=== PATIENT | female | born 1980 | race Caucasian/White ===

== ENCOUNTER → 2021-05-17 08:41 | Outpatient (CLI) | payer OTHER, SELFPAY ==
[2021-05-17 20:33] LABS: Add Manual Diff / Slide Review NO; Alanine Aminotransferase 15 IU/L (<35); Albumin Globulin Ratio 1.4 (1.0-2.8); Alkaline Phosphatase 50 U/L (38-126); Aspartate Aminotransferase 24 IU/L (14-36); Basophils Absolute Auto 0 /uL (0-100); Basophils Percent Auto 0.4 % (0-2); Bilirubin Total 0.5 mg/dL (0.2-1.3); Blood Urea Nitrogen 15 mg/dL (7-17); Calcium 9.2 mg/dL (8.4-10.2); Carbon Dioxide 28 mmol/L (22-32); Chloride 105 mmol/L (98-107); Cholesterol 199 mg/dL (140-199); Eosinophils Absolute Auto 100 /uL (0-450); Eosinophils Percent Auto 2.3 % (2-4); Estimated Glomerular Filt Rate > 60.0 mL/min (>60); Globulin 2.8 g/dL (1.7-4.1); Glucose 90 mg/dL (70-100); HDL Cholesterol 90 mg/dL (40-60); HEMOLYSIS < 15 (0-50); Hemoglobin 12.9 g/dL (12.0-16.0); LDL Cholesterol Calculated 93 mg/dL (<100); Lymphocytes Absolute Auto 1500 /uL (1100-4500); Lymphocytes Percent Auto 28.2 % (25-40); Mean Corpuscular HGB Conc 33.1 % (30-36); Mean Corpuscular Hemoglobin 29.7 PG (26-34); Mean Corpuscular Volume 89.5 fL (80-100); Monocytes Absolute Auto 500 /uL (0-900); Neutrophils Absolute Auto 3100 /uL (1500-7000); Neutrophils Percent Auto 60.1 % (50-75); Platelet Count 256 X10^3/uL (150-400); Potassium 4.2 mmol/L (3.4-5.1); Red Blood Cell Count 4.35 X10^6/uL (4.0-5.2); Red Cell Distribution Width 13.4 % (11.6-14.8); Sodium 138 mmol/L (137-145); Total Protein 6.8 g/dL (6.3-8.2); Triglycerides 78 mg/dL (35-150); White Blood Cell Count 5.2 X10^3/uL (4.5-11.0)
[2021-05-17 21:35] LABS: Folate 17.8 ng/mL (2.76-20.0); Vitamin B12 484 pg/mL (239-931)
== END ==
PROVIDERS: PCP Family Medicine; Visit Provider Family Medicine
DX: E03.9 Hypothyroidism, unspecified (principal); Z79.890 Hormone replacement therapy
CPT/HCPCS: 80053; 80061; 82607; 82746; 84443; 85025

== ENCOUNTER → 2022-06-06 08:49 | Outpatient (CLI) | payer OTHER, SELFPAY ==
[2022-06-06 19:56] LABS: Add Manual Diff / Slide Review NO; Basophils Absolute Auto 0 /uL (0-100); Basophils Percent Auto 0.6 % (0-2); Eosinophils Absolute Auto 100 /uL (0-450); Eosinophils Percent Auto 2.3 % (2-4); Hematocrit 37.9 % (36-46); Hemoglobin 12.6 g/dL (12.0-16.0); Lymphocytes Absolute Auto 1200 /uL (1100-4500); Lymphocytes Percent Auto 25.7 % (25-40); Mean Corpuscular HGB Conc 33.4 % (30-36); Mean Corpuscular Hemoglobin 29.4 PG (26-34); Mean Corpuscular Volume 88.1 fL (80-100); Monocytes Absolute Auto 400 /uL (0-900); Monocytes Percent Auto 8.6 % (3-14); Neutrophils Absolute Auto 2900 /uL (1500-7000); Neutrophils Percent Auto 62.8 % (50-75); Platelet Count 249 X10^3/uL (150-400); Red Cell Distribution Width 13.6 % (11.6-14.8); White Blood Cell Count 4.6 X10^3/uL (4.5-11.0)
[2022-06-06 20:05] LABS: Alanine Aminotransferase 13 IU/L (<35); Albumin 4.4 g/dL (3.5-5.0); Albumin Globulin Ratio 1.8 (1.0-2.8); Alkaline Phosphatase 50 U/L (38-126); Aspartate Aminotransferase 24 IU/L (14-36); BUN Creatinine Ratio 16.5 (6-22); Bilirubin Total 0.5 mg/dL (0.2-1.3); Blood Urea Nitrogen 14 mg/dL (7-17); Calcium 9.1 mg/dL (8.4-10.2); Carbon Dioxide 31 mmol/L (22-32); Chloride 102 mmol/L (98-107); Cholesterol 203 mg/dL (140-199); Estimated Glomerular Filt Rate > 60 mL/min (>60); Globulin 2.5 g/dL (1.7-4.1); Glucose 87 mg/dL (70-100); HDL Cholesterol 79 mg/dL (40-60); HEMOLYSIS < 15 (0-50); LDL Cholesterol Calculated 108 mg/dL (<100); Potassium 4.5 mmol/L (3.4-5.1); Sodium 138 mmol/L (137-145); Total Protein 6.9 g/dL (6.3-8.2); Triglycerides 81 mg/dL (35-150)
[2022-06-06 20:54] LABS: Vitamin B12 341 pg/mL (239-931)
== END ==
PROVIDERS: PCP Physician Assistant; Visit Provider Physician Assistant
DX: E03.9 Hypothyroidism, unspecified (principal); E53.8 Deficiency of other specified B group vitamins; Z13.220 Encounter for screening for lipoid disorders
CPT/HCPCS: 80053; 80061; 82607; 84443; 85025

== ENCOUNTER → 2022-06-13 09:08 | Outpatient (CLI) | payer OTHER, SELFPAY ==
[2022-06-13 21:44] LABS: COVID19 - ORCAS (NP or Nasal) Negative (Negative)
== END ==
PROVIDERS: PCP Physician Assistant; Visit Provider Physician Assistant
DX: Z01.812 Encounter for preprocedural laboratory examination (principal); Z20.822 Contact with and (suspected) exposure to COVID-19
CPT/HCPCS: U0003

== ENCOUNTER 2022-06-15 09:03 | Day surgery (SDC) | payer OTHER, SELFPAY ==
[2022-06-15] VITALS (8 sets, daily range): BP systolic 103–118; BP diastolic 65–73; PULSE 59–83; RESP 11–16; TEMP 36–37; O2SAT 97–100; BMI 25.8
--- NOTE | 2022-06-15 | PATH_ITS ---
[facility] Accession Number: [id number] . 01 Material submitted: . endometrium - ENDOMETRIAL CURETTINGS . 01 Diagnosis: Endometrium, Curettage: Endometrioid intraepithelial neoplasia (EIN; complex atypical hyperplasia). MRV 06/19/2022 1305 Local . 01 Comment: Changes diagnostic of adenocarcinoma are not seen in this specimen. Background secretory phase endometrium is present. . 01 Electronically signed: . Joslyn Hu MD, Pathologist NPI- [id number] . 01 Gross description: . ENDOMETRIAL CURETTINGS: Received in formalin are minute fragments of mucoid and hemorrhagic material measuring 2.5 x 1.7 x 0.2 cm in aggregate. Submitted in toto in 1 cassette. /CPE 06/16/2022 0447 Local . 01 Pathologist provided ICD-10: N85.00 . 01 CPT . 762025 Specimen Comment: A courtesy copy of this report has been sent to [phone] Performed at: 01 [facility] Cytology [address] [place] [address], [place], [place] [id number] MD Saul Pelletier MD Phone: [phone]
[2022-06-15] MEDS: LACTATED RINGERS 1,000 ML 42 ML IV (10:11)
--- NOTE | 2022-06-15 10:52 | PM.HP.1 ---
History of Present Illness History of Present Illness Date Patient Seen: 06/15/22 Time Patient Seen: 10:52 Chief complaint: RIC Narrative: Patient is a 41-year-old 2 para 2 who presents for a D&C hysteroscopy due to complex endometrial hyperplasia on an endometrial biopsy in the office. Patient History Medical History Brain fog (~2013) C. difficile colitis (~2016) Chicken pox Headache Hypothyroidism (~2015) Infertility Migraines MRSA (methicillin resistant Staphylococcus aureus) (~2018) Ovarian cyst Surgical History Anesthesia History of appendectomy (~05/24/10) History of oral surgery (~2005) History of ovarian resection Family & Social History Family History (Updated 05/19/21 @ 21:24 by Tonie Mireles) Father Hypertension Mother Breast cancer Brother Hypertension Brother Hypertension Sister Cancer Grandmother Stomach cancer Social History: household members spouse Tobacco & Substance use: Smoking Status Former smoker alcohol intake current alcohol intake frequency 0-2 drinks per day Substance Use Type does not use Meds Home Medications and Allergies Home Medications Medication Instructions Recorded Confirmed Type levothyroxine 75 mcg tablet 37.5 mcg PO DAILY #90 tabs 01/31/22 06/15/22 Rx progesterone micronized 100 mg 100 mg PO QAM #30 caps 06/07/22 06/15/22 Rx capsule (Prometrium) estradiol 0.1 mg/24 hr semiweekly See Rx Instructions .Route 06/09/22 06/15/22 Rx transdermal patch (Jeanne) .COMPLEX #24 patches melatonin 3 mg DAILY 06/15/22 06/15/22 History Allergies Allergy/AdvReac Type Severity Reaction Status Date / Time metronidazole [From Flagyl] AdvReac Intermediate Numbness Verified 06/15/22 09:31 in face and hands. Exam Vital Signs (past 8 hours): - 06/15/22 09:34 Temperature 98.6 F Pulse Rate 83 Respiratory Rate 16 Blood Pressure 118/67 Pulse Oximetry 97 Oxygen Delivery Method Room Air Oxygen Delivery Method Room Air Narrative Exam Narrative: HEENT: No thyromegaly, no anterior cervical or supraclavicular lymphadenopathy. Lungs:Clear to auscultation bilaterally, no wheezes. Cardiovascular: Regular rate and rhythm, no murmurs, rubs, or gallops. Abdomen: Well-healed scars. No hepatosplenomegaly. No masses palpable. External genitalia: Normal Vagina: Normal Cervix: Normal Bimanual exam: 8 Week size anteverted uterus. Mobile. No adnexal masses or tenderness Assessment & Plan Assessment & Plan narrative: Assessment: 41-year-old 2 para 2 with complex endometrial hyperplasia by biopsy in the office Plan: D&C hysteroscopy with possible polypectomy The risks, benefits, and alternatives to the procedure were explained to the patient. The risks including bleeding, infection, and uterine perforation. She understands these risks and agrees to proceed. A full par Q was held and consent form was signed. COVID-19 COVID-19 status: Negative Result date/Date tested (Pos, Neg/Pending): 06/13/22 Time Spent With Patient Time with patient: less than 30 minutes Critical Care time: I spent a total of [] minutes of critical care time on this patient's care today; this time is exclusive of procedural time.
--- NOTE | 2022-06-15 10:55 | PM.PREOP ---
Pre-operative Note COVID-19 COVID-19 status: Negative Result date/Date tested (Pos, Neg/Pending): 06/13/22 Criteria for continued procedure: Non-surgical alternatives not available or appropriate per current SOC Interval Note History & Physical reviewed/Exam performed by Physician: Yes Changes to H&P: No H&P completed within 30 days and has changed as indicated here:: 06/15/22
--- NOTE | 2022-06-15 11:37 | SUR.OPER ---
Lithotomy on padded OR bed, head on pillow, arms secured on padded arm boards at <90 degrees abduction. Legs secured in padded yellow fins stirrups.
--- NOTE | 2022-06-15 11:52 | PM.GYNOP.1 ---
Operative Date/Time/Diagnoses Date of procedure: 06/15/22 Time of procedure: 11:52 Pre-op diagnosis: Complex endometrial hyperplasia on EMB in office Post-op diagnosis: same Procedure & Clinicians Procedure: Procedures Operation Date: 06/15/22 10:15 Actual Procedure Side Surgeon p Hysteroscopy D&C Yamilex Greenwood MD Indications: Complex endometrial hyperplasia on office EMB Surgeon: Yamilex Greenwood Anesthesia Type: General (LMA) Operative Notes Findings: 8 wk size anteverted uterus Very thickened endometrial lining Neither fallopian tube ostia observed due to thickness on endometrium Closure Type: not applicable Specimen(s): endometrial curettings Estimated blood loss (mL): 5 Blood products transfused: none Procedure in detail: After informed consent was obtained, the patient was taken to the operating room where she was placed in the dorsal supine position. After adequate LMA general anesthesia was achieved, she was placed in the dorsal lithotomy position, and prepped and draped in the usual sterile fashion. A time-out was performed. A bivalve speculum was placed into the vagina and the anterior lip of the cervix was grasped with a single-tooth tenaculum. Cervical os was sequentially dilated to the # 8 Hegar dilator. The hysteroscope passed easily into the endometrial cavity. Neither fallopian tube ostia were observed. There was thick endometrial lining circumferentially. The hysteroscope was removed. Sharp curettage was performed yielding a large amount of endometrial curettings. A plastic suction curette was passed into the endometrial cavity. Several passes with suction revealed a large amount of tissue. The instruments were removed from the uterus. The single-tooth tenaculum was removed from the anterior lip of the cervix. The bivalve speculum was removed from the vagina. Sponge, lap, and instrument counts were correct x2. The patient tolerated the procedure well, and was taken to PACU in stable condition. Complications: none Post-operative Condition: stable Disposition: PACU Plan for aftercare: Home after recovery
[2022-06-15] MEDS: OXYCODONE IR 5 MG TABLET PO (12:11)
== END 2022-06-15 13:12 | disposition home or self-care (01) ==
PROVIDERS: Referring Provider Obstetrics & Gynecology; Visit Provider Obstetrics & Gynecology
PROC: 0UDB8ZZ Extraction of Endometrium, Via Natural or Artificial Opening Endoscopic (ICD-10-PCS; CPT 58558; principal; 2022-06-15 10:15)
DX: N85.01 Benign endometrial hyperplasia (principal); N93.9 Abnormal uterine and vaginal bleeding, unspecified; E03.9 Hypothyroidism, unspecified
CPT/HCPCS: 58558; J1100; J1885; J2250; J2405; J2704; J3010

== ENCOUNTER → 2023-06-05 11:27 | Outpatient (CLI) | payer OTHER, SELFPAY ==
--- NOTE | 2023-06-05 11:28 | DI.MG.S_ITS ---
BILATERAL DIGITAL SCREENING MAMMOGRAM 3D/2D WITH CAD: 06/05/2023 CLINICAL: Routine screening. Family History breast cancer. Comparison is made to exam dated: 08/08/2021 mammogram - outside location. Both breasts are heterogeneously dense, which may obscure small masses (category c / 51-75% glandular tissue). Current study was also evaluated with a Computer Aided Detection (CAD) system. No significant masses, calcifications, or other findings are seen in either breast. There has been no significant interval change. IMPRESSION: NEGATIVE There is no mammographic evidence of malignancy. A 1 year screening mammogram is recommended. Based on the Tyrer Cuzick model (a risk assessment model) the patient's lifetime risk is 12.8% and her 10 year risk is 2.2%. According to the ACR, ACS, and NCCN guidelines, an annual breast MRI exam along with mammogram is recommended if the patient's lifetime risk is 20% or greater. This exam was interpreted at Station ID: [id number]. NOTE: For mammograms, a report in lay terms will be sent to the patient. Approximately 15% of breast malignancies will not be visualized mammographically. In the management of a palpable breast mass, a negative mammogram must not discourage biopsy of a clinically suspicious lesion. Electronically Signed By: Valerie medellin/duyen:06/05/2023 16:35:17 letter sent: Normal Exam ACR BI-RADS Category 1: Negative [id number]
== END ==
PROVIDERS: PCP Physician Assistant; Referring Provider Physician Assistant; Visit Provider Physician Assistant
DX: Z12.31 Encounter for screening mammogram for malignant neoplasm of breast (principal); Z80.3 Family history of malignant neoplasm of breast
CPT/HCPCS: 77063; 77067

== ENCOUNTER 2023-08-18 18:28 | Emergency (ER) | payer OTHER, SELFPAY ==
[2023-08-18] VITALS (9 sets, daily range): BP systolic 105–157; BP diastolic 58–72; PULSE 66–91; RESP 16–18; TEMP 36.8; O2SAT 98–100; BMI 25.9
--- NOTE | 2023-08-18 19:43 | ED.HA ---
HPI - Headache General Chief Complaint: Headache Stated Complaint: migraine, pupils were different Time Seen by Provider: 08/18/23 19:09 Mode of arrival: Ambulatory History of Present Illness HPI Narrative: Patient 42-year-old female history of hysterectomy hypothyroid presenting today with migraine headache and abnormal left pupil. She reports that she is had a migraine headache which is a little abnormal she had some pressure behind her left eye today she reported an abnormal pupil shape which has now returned to. She was having a headache at the time. No numbness tingling or weakness. However she is reporting some neck pain. She denies any chiropractic manipulation. It does kind of hurt and with movement. She is not wanting anything for pain Related Data Home Medications Medication Instructions Recorded Confirmed melatonin 3 mg DAILY 06/15/22 08/17/23 Previous Rx's Medication Instructions Recorded naproxen 500 mg tablet 500 mg PO BID PRN pain #30 tabs 01/25/23 estradiol 0.1 mg/24 hr semiweekly See Rx Instructions .Route 05/21/23 transdermal patch (Jeanne) .COMPLEX #24 patches levothyroxine 75 mcg tablet 37.5 mcg PO DAILY #14 tabs 08/09/23 Allergies Allergy/AdvReac Type Severity Reaction Status Date / Time metronidazole [From Flagyl] AdvReac Intermediate Numbness Verified 08/17/23 10:29 in face and hands. Review of Systems Review of Systems ROS Unobtainable: All systems reviewed & are unremarkable except as noted in HPI and below Patient History Medical History (Updated 08/18/23 @ 21:04 by Giovanna Delacruz DO) Brain fog (~2013) C. difficile colitis (~2016) Chicken pox Headache Hypothyroidism (~2015) Infertility Migraines MRSA (methicillin resistant Staphylococcus aureus) (~2018) Ovarian cyst Surgical History Anesthesia History of appendectomy (~05/24/10) History of oral surgery (~2005) History of ovarian resection Family History (Updated 05/19/21 @ 21:24 by Tonie Mireles) Father Hypertension Mother Breast cancer Brother Hypertension Brother Hypertension Sister Cancer Grandmother Stomach cancer Social History household members: spouse Smoking Status: Former smoker alcohol intake: current Smoking Status: Former smoker alcohol intake frequency: 0-2 drinks per day Substance Use Type: does not use Exam Initial Vital Signs Initial Vital Signs: Vital Signs Pulse Oximetry 98 08/18/23 18:31 GENERAL: Well-appearing, well-nourished and in no acute distress. HEENT: Head atraumatic,EOMI, pupils reactive, face symmetric, moist mucous membranes NECK: No vertebral tenderness no step-offs, pain reproducible when she turns her head towards the left. CARDIOVASCULAR: Regular rate and rhythm without murmurs, rubs or gallops. RESPIRATORY: Breath sounds equal bilaterally, no wheezes rales or rhonchi. ABDOMEN: Soft, nontender. Normoactive bowel sounds all 4 quadrants. No guarding or rebound. EXTREMITIES: Normal range of motion, no clubbing or edema. Neurovascularly intact NEUROLOGICAL: Alert and oriented x4.Normal gait and speech. Cranial nerves II through XII grossly intact. Good [id number], good uhtd-rq-zaup, strength equal bilaterally, no dysarthria or aphasia, sensation in tact to soft touch bilaterally, no visual changes, no facial droop SKIN: Warm, dry, no laceration, no petechiae, no rashes or lesions. Scores NIH Stroke Scale Level of Conciousness: Alert, keenly responsive Ask month/age: Answers both questions correctly. Open/close eyes, close hand: Performs both tasks correctly Best gaze horizontal: Normal Visual fuentes: No visual loss Facial palsy: Normal symetrical movement Left arm drift: No drift for full 10 sec Right arm drift: No drift for full 10 sec Left leg drift: No drift for full 5 sec Right leg drift: No drift for full 5 sec Limb ataxia: Absent Sensory on face/arms/legs: Normal, no sensory loss Best language: No aphasia, normal Dysarthria: Normal Extinction or inattention: No abnormality Total NIH Stroke scale score: 0 Course Orders Ordered: ED Orders 08/18/23 20:00 CT angio head and neck Stat 08/18/23 20:05 CBC Auto Diff [Complete Blood Count AUTO DIFF] Stat CMP [Comprehensive Metabolic Panel] Stat Vital Signs Vital signs: Vital Signs - 8 hr 08/18/23 18:34 08/18/23 18:31 08/18/23 18:32 Temperature 98.2 F Pulse Rate 81 Respiratory Rate 18 Blood Pressure 157/72 H 157/72 H Pulse Oximetry 99 98 Oxygen Delivery Method Room Air 08/18/23 18:32 08/18/23 19:00 08/18/23 19:00 Temperature Pulse Rate 91 H 74 Respiratory Rate 18 Blood Pressure 111/59 L Pulse Oximetry 99 99 Oxygen Delivery Method 08/18/23 19:30 08/18/23 19:30 08/18/23 20:00 Temperature Pulse Rate 67 Respiratory Rate 16 Blood Pressure 105/59 L 123/58 L Pulse Oximetry 99 Oxygen Delivery Method 08/18/23 20:00 08/18/23 20:30 08/18/23 20:31 Temperature Pulse Rate 66 70 71 Respiratory Rate 18 16 Blood Pressure Pulse Oximetry 98 100 100 Oxygen Delivery Method 08/18/23 20:31 08/18/23 21:08 Temperature Pulse Rate 74 Respiratory Rate 16 Blood Pressure 121/58 L 113/64 Pulse Oximetry 98 Oxygen Delivery Method Room Air MDM - Headache Lab Data 08/18/23 20:05 08/18/23 20:05 Labs: Lab Results 08/18/23 08/18/23 Range/Units 20:05 20:05 WBC 7.0 (4.5-11.0) X10^3/uL RBC 4.46 (4.0-5.2) X10^6/uL Hgb 13.2 (12.0-16.0) g/dL Hct 38.7 (36-46) % MCV 86.7 (80-100) fL MCH 29.7 (26-34) PG MCHC 34.2 (30-36) % RDW 13.3 (11.6-14.8) % Plt Count 266 (150-400) X10^3/uL Neut % (Auto) 66.2 (50-75) % Lymph % (Auto) 23.0 L (25-40) % [place] % (Auto) 9.2 (3-14) % Eos % (Auto) 1.0 L (2-4) % Baso % (Auto) 0.6 (0-2) % Neut # (Auto) 4600 (2667-5192) /uL Lymph # (Auto) 1600 (1132-5648) /uL [place] # (Auto) 600 (0-900) /uL Eos # (Auto) 100 (0-450) /uL Baso # (Auto) 0 (0-100) /uL Sodium 138 (137-145) mmol/L Potassium 3.7 (3.4-5.1) mmol/L Chloride 101 (98-107) mmol/L Carbon Dioxide 30 (22-32) mmol/L BUN 16 (7-17) mg/dL Creatinine 0.84 (0.52-1.04) mg/dL Estimated GFR > 60 (>60) mL/min BUN/Creatinine Ratio 19.0 (6-22) Glucose 86 (70-100) mg/dL Calcium 9.8 (8.4-10.2) mg/dL Total Bilirubin 0.3 (0.2-1.3) mg/dL AST 23 (14-36) IU/L ALT 18 (<35) IU/L Alkaline Phosphatase 64 (38-126) U/L Total Protein 7.7 (6.3-8.2) g/dL Albumin 4.5 (3.5-5.0) g/dL Globulin 3.2 (1.7-4.1) g/dL Albumin/Globulin Ratio 1.4 (1.0-2.8) Imaging Data CTA - brain/neck: Radiologist's Impression: PROCEDURE:? CT ANGIO HEAD AND NECK ? INDICATIONS:? Left pupil abnormal with neck pain and headache. ? TECHNIQUE:? After the administration of intravenous contrast, 1 mm thick sections acquired from the aortic arch through the [place] of [place].? 3-dimensional sikihcu-vcymxafmh-nujqpsqfuk (MIP) and/or volume rendering reformats were acquired of the central intracranial vasculature and neck separately. For radiation dose reduction, the following was used:? automated exposure control, adjustment of mA and/or kV according to patient size.? ? COMPARISON:? None. ? FINDINGS:? Image quality:? Diagnostic.? ? BRAIN:? CSF spaces:? Ventricles are normal in size and shape.? Basal cisterns are patent.? No extra-axial fluid collections.? ? Brain:? No significant abnormality of the brain can be seen. ? ? ? Skull and face:? Calvarium and facial bones appear intact, without suspicious lesions.? Orbits appear normal.? ? Sinuses:? Sinuses and mastoids are clear.? ? HEAD CT ANGIOGRAPHY:? Anterior circulation:? Intracranial internal carotid arteries are normal in size and flow.? The flow within the paired anterior cerebral arteries is normal and symmetric.? The flow within the middle cerebral arteries is normal and symmetric.? The anterior communicating artery is seen.? No aneurysms are seen.? ? Posterior circulation:? Visualized portions of the vertebral arteries demonstrate normal caliber, and join to form a normal appearing basilar artery.? Flow within the posterior cerebral arteries is normal and symmetric.? No aneurysms are seen.? ? NECK CT ANGIOGRAPHY:? Carotid system:? The great vessels demonstrate a conventional anatomy as they arise from the aortic arch.? The origins of the common carotid arteries appear patent.? The common carotid arteries demonstrate normal caliber and courses.? The bifurcation regions are both widely patent.? The internal carotid arteries demonstrate normal calibers and courses.? ? Posterior circulation:? The origins of the vertebral arteries both appear widely patent.? The more superior extracranial portions of both vertebral arteries also demonstrate normal courses and calibers.? They join to form a normal appearing basilar artery.? ? Soft tissues:? Visualized neck soft tissues demonstrate no suspicious abnormalities.? ? Bones:? No suspicious bony lesions.? Visualized cervical spine appears normally aligned.? IMPRESSION:? Normal for age, source of current symptoms is not seen. ? Any quantitative measurements of stenosis were performed using NASCET criteria.? ? ? Dictated by: Yoni Sin M.D. on 08/18/2023 at 20:37 ? ? MDM Narrative Medical decision making narrative: Patient 42-year-old female history of migraines presenting today with a left abnormal pupil which is now normal. It does seem to react no evidence of be shaped pupil no trauma to the eye. She is having neck pain as well without any obvious injury or manipulation. Possible dissection without numbness or tingling seems likely but CT angio was done and is negative. Blood work is so negative Multiple etiologies for patient's symptoms considered including, but not limited to: Vertebral artery dissection, brain mass, atypical migraine Prior Charts reviewed: Labs reviewed and interpreted by myself: No abnormality Imaging reviewed: CT angio Consultations: None Patient's symptoms improved over duration of stay with above-stated therapies. Findings and discharge diagnosis discussed with patient/family followed by verbalization of understanding Return precautions discussed with patient/family whom verbalize understanding of diagnosis and plan Discharge Plan Departure Patient Disposition: Home Clinical Impression: Headache Instructions: DI for Headache Activity Restrictions/Additional Instructions: *You have been diagnosed with headache *What to do: At this time there is no abnormality in head or neck. Rest and hydrate *Continue to take medications as directed *Follow up with your primary care provider in 2-3 days or call [phone] *Return to ER if you should have in worsening headache neck pain fever numbness tingling weakness or any new, worsening or concerning symptoms Prescriptions: No Action estradiol [Jeanne] 0.1 mg/24 hr patch semiweekly See Rx Instructions .ROUTE .COMPLEX Qty: 24 3RF Dose Instruction: APPLY 1 PATCH TO THE SKIN TWICE A WEEK -- ALTERNATE WITH 1 PATCH FOR 3 DAYS AND 1 PATCH FOR 4 DAYS EACH WEEK Rx Instructions: APPLY 1 PATCH TO THE SKIN TWICE A WEEK -- ALTERNATE WITH 1 PATCH FOR 3 DAYS AND 1 PATCH FOR 4 DAYS EACH WEEK levothyroxine 75 mcg tablet 37.5 mcg PO DAILY Qty: 14 0RF melatonin 3 mg DAILY naproxen 500 mg tablet 500 mg PO BID PRN (Reason: pain) Qty: 30 0RF Rx Instructions: Take with food Referrals: Rosemarie Anthony PA-C [Primary Care Provider] - Stand Alone Forms: Patient Portal/API
--- NOTE | 2023-08-18 20:00 | DI.CT.S_ITS ---
PROCEDURE: CT ANGIO HEAD AND NECK INDICATIONS: Left pupil abnormal with neck pain and headache. TECHNIQUE: After the administration of intravenous contrast, 1 mm thick sections acquired from the aortic arch through the [place] of [place]. 3-dimensional ftbncwk-mfrmhssmf-srxzmyqjvj (MIP) and/or volume rendering reformats were acquired of the central intracranial vasculature and neck separately. For radiation dose reduction, the following was used: automated exposure control, adjustment of mA and/or kV according to patient size. COMPARISON: None. FINDINGS: Image quality: Diagnostic. BRAIN: CSF spaces: Ventricles are normal in size and shape. Basal cisterns are patent. No extra-axial fluid collections. Brain: No significant abnormality of the brain can be seen. Skull and face: Calvarium and facial bones appear intact, without suspicious lesions. Orbits appear normal. Sinuses: Sinuses and mastoids are clear. HEAD CT ANGIOGRAPHY: Anterior circulation: Intracranial internal carotid arteries are normal in size and flow. The flow within the paired anterior cerebral arteries is normal and symmetric. The flow within the middle cerebral arteries is normal and symmetric. The anterior communicating artery is seen. No aneurysms are seen. Posterior circulation: Visualized portions of the vertebral arteries demonstrate normal caliber, and join to form a normal appearing basilar artery. Flow within the posterior cerebral arteries is normal and symmetric. No aneurysms are seen. NECK CT ANGIOGRAPHY: Carotid system: The great vessels demonstrate a conventional anatomy as they arise from the aortic arch. The origins of the common carotid arteries appear patent. The common carotid arteries demonstrate normal caliber and courses. The bifurcation regions are both widely patent. The internal carotid arteries demonstrate normal calibers and courses. Posterior circulation: The origins of the vertebral arteries both appear widely patent. The more superior extracranial portions of both vertebral arteries also demonstrate normal courses and calibers. They join to form a normal appearing basilar artery. Soft tissues: Visualized neck soft tissues demonstrate no suspicious abnormalities. Bones: No suspicious bony lesions. Visualized cervical spine appears normally aligned. IMPRESSION: Normal for age, source of current symptoms is not seen. Any quantitative measurements of stenosis were performed using NASCET criteria. Dictated by: Yoni Sin M.D. on 08/18/2023 at 20:37 Approved by: Yoni Sin M.D. on 08/18/2023 at 20:39
[2023-08-18 20:18] LABS: Add Manual Diff / Slide Review NO; Basophils Absolute Auto 0 /uL (0-100); Basophils Percent Auto 0.6 % (0-2); Eosinophils Absolute Auto 100 /uL (0-450); Hematocrit 38.7 % (36-46); Hemoglobin 13.2 g/dL (12.0-16.0); Lymphocytes Absolute Auto 1600 /uL (1100-4500); Mean Corpuscular HGB Conc 34.2 % (30-36); Mean Corpuscular Hemoglobin 29.7 PG (26-34); Mean Corpuscular Volume 86.7 fL (80-100); Monocytes Absolute Auto 600 /uL (0-900); Monocytes Percent Auto 9.2 % (3-14); Neutrophils Absolute Auto 4600 /uL (1500-7000); Neutrophils Percent Auto 66.2 % (50-75); Platelet Count 266 X10^3/uL (150-400); Red Blood Cell Count 4.46 X10^6/uL (4.0-5.2); Red Cell Distribution Width 13.3 % (11.6-14.8)
[2023-08-18 20:28] LABS: Alanine Aminotransferase 18 IU/L (<35); Albumin 4.5 g/dL (3.5-5.0); Albumin Globulin Ratio 1.4 (1.0-2.8); Alkaline Phosphatase 64 U/L (38-126); Aspartate Aminotransferase 23 IU/L (14-36); Bilirubin Total 0.3 mg/dL (0.2-1.3); Blood Urea Nitrogen 16 mg/dL (7-17); Calcium 9.8 mg/dL (8.4-10.2); Carbon Dioxide 30 mmol/L (22-32); Chloride 101 mmol/L (98-107); Estimated Glomerular Filt Rate > 60 mL/min (>60); Globulin 3.2 g/dL (1.7-4.1); Glucose 86 mg/dL (70-100); HEMOLYSIS < 15 (0-50); Potassium 3.7 mmol/L (3.4-5.1); Sodium 138 mmol/L (137-145); Total Protein 7.7 g/dL (6.3-8.2)
== END 2023-08-18 21:22 | disposition home or self-care (01) ==
PROVIDERS: Emergency Provider Emergency Medicine; PCP Physician Assistant Medical
DX: R51.9 Headache, unspecified (principal); M54.2 Cervicalgia
CPT/HCPCS: 36415; 70496; 70498; 80053; 85025; 99283; 99284; Q9967

== ENCOUNTER → 2023-08-30 11:26 | Outpatient (CLI) | payer OTHER, SELFPAY ==
[2023-08-30 19:59] LABS: Alanine Aminotransferase 18 IU/L (<35); Albumin 4.5 g/dL (3.5-5.0); Albumin Globulin Ratio 1.5 (1.0-2.8); Alkaline Phosphatase 58 U/L (38-126); Aspartate Aminotransferase 24 IU/L (14-36); BUN Creatinine Ratio 21.3 (6-22); Bilirubin Total 0.3 mg/dL (0.2-1.3); Blood Urea Nitrogen 16 mg/dL (7-17); Calcium 9.9 mg/dL (8.4-10.2); Carbon Dioxide 30 mmol/L (22-32); Chloride 101 mmol/L (98-107); Cholesterol 209 mg/dL (140-199); Estimated Glomerular Filt Rate > 60 mL/min (>60); Glucose 86 mg/dL (70-100); HDL Cholesterol 75 mg/dL (40-60); HEMOLYSIS < 15 (0-50); LDL Cholesterol Calculated 117 mg/dL (<100); Potassium 4.3 mmol/L (3.4-5.1); Sodium 138 mmol/L (137-145); Total Protein 7.5 g/dL (6.3-8.2); Triglycerides 83 mg/dL (35-150)
[2023-08-30 20:08] LABS: Add Manual Diff / Slide Review NO; Basophils Absolute Auto 0 /uL (0-100); Basophils Percent Auto 0.9 % (0-2); Eosinophils Absolute Auto 100 /uL (0-450); Eosinophils Percent Auto 1.8 % (2-4); Hematocrit 37.1 % (36-46); Hemoglobin 13.3 g/dL (12.0-16.0); Lymphocytes Absolute Auto 1600 /uL (1100-4500); Lymphocytes Percent Auto 31.3 % (25-40); Mean Corpuscular HGB Conc 35.9 % (30-36); Mean Corpuscular Hemoglobin 31.2 PG (26-34); Mean Corpuscular Volume 86.8 fL (80-100); Monocytes Absolute Auto 400 /uL (0-900); Monocytes Percent Auto 8.3 % (3-14); Neutrophils Absolute Auto 3000 /uL (1500-7000); Neutrophils Percent Auto 57.7 % (50-75); Platelet Count 315 X10^3/uL (150-400); Red Blood Cell Count 4.27 X10^6/uL (4.0-5.2); Red Cell Distribution Width 12.8 % (11.6-14.8); White Blood Cell Count 5.1 X10^3/uL (4.5-11.0)
[2023-08-30 20:48] LABS: Vitamin B12 868 pg/mL (239-931)
[2023-09-02 07:31] LABS: TSH w/ Reflex to FT4 2.37 uIU/mL (0.47-4.68)
== END ==
PROVIDERS: PCP Physician Assistant Medical; Visit Provider Physician Assistant Medical
DX: E03.9 Hypothyroidism, unspecified (principal); E53.8 Deficiency of other specified B group vitamins
CPT/HCPCS: 80053; 80061; 82607; 84443; 85025

== ENCOUNTER → 2024-01-01 08:42 | Outpatient (CLI) | payer OTHER, SELFPAY | PROVIDERS: PCP Physician Assistant Medical; Visit Provider Physician Assistant Medical | DX: M54.9 Dorsalgia, unspecified (principal); R10.9 Unspecified abdominal pain; M54.50 Low back pain, unspecified | CPT/HCPCS: 87086 ==

== ENCOUNTER → 2024-01-28 10:41 | Outpatient (CLI) | payer OTHER, SELFPAY ==
--- NOTE | 2024-01-28 10:42 | DI.US.S_ITS ---
PROCEDURE: US ABDOMEN COMPLETE INDICATIONS: Right-sided abdominal pain. TECHNIQUE: Real-time scanning was performed of the abdominal and retroperitoneal organs, with image documentation. Please note study was completed on January 28, 2024. No interpretation was provided at the time of image completion. Study was presented for interpretation on February 07, 2024. COMPARISON: None. FINDINGS: Liver: Liver is normal in size and homogeneous in echotexture. Liver is mildly echogenic. Gallbladder: Gallbladder is sonographically normal. No gallstones. No gallbladder wall thickening. No pericholecystic fluid. No sonographic Crook sign. Biliary ducts: Intrahepatic bile ducts are non-dilated. Extrahepatic bile duct caliber measures 4.0 mm. Normal is 6-7 mm or less in diameter, or 10 mm or less post-cholecystectomy. Pancreas: Visualized portions of the pancreas are sonographically normal. Pancreatic tail not visualized due to bowel gas. Spleen: Spleen is normal in size and homogeneous in echotexture. Kidneys: Kidneys are normal in size and echotexture. Right kidney measures 11.1 cm long; left kidney measures 11.1 cm long. No hydronephrosis or nephrolithiasis. No solid masses. Aorta: Visualized aorta is normal in caliber at less than 3 cm. Iliacs: Proximal common iliac arteries are normal in caliber at less than 2.5 cm. IVC: Intrahepatic inferior vena cava is patent. Miscellaneous: No free abdominal fluid. IMPRESSION: Echogenic liver. Finding typically represents fatty infiltration; however, finding is nonspecific and correlation with clinical and laboratory findings is recommended to exclude other etiologies including hepatic cirrhosis. Otherwise, normal abdominal sonogram. Dictated by: Florida Tenorio MD, PhD on 02/07/2024 at 13:32 Approved by: Florida Tenorio MD, PhD on 02/07/2024 at 13:34
== END ==
LOC: US 10:41
PROVIDERS: PCP Physician Assistant Medical; Referring Provider Physician Assistant Medical; Visit Provider Physician Assistant Medical
DX: M54.9 Dorsalgia, unspecified (principal); R10.9 Unspecified abdominal pain
CPT/HCPCS: 76700

== ENCOUNTER → 2024-02-07 17:08 | Outpatient (CLI) | payer OTHER, SELFPAY ==
[2024-02-07 17:41] LABS: Add Manual Diff / Slide Review NO; Basophils Absolute Auto 0 /uL (0-100); Basophils Percent Auto 0.8 % (0-2); Eosinophils Absolute Auto 100 /uL (0-450); Eosinophils Percent Auto 2.3 % (2-4); Hematocrit 35.2 % (36-46); Hemoglobin 12.1 g/dL (12.0-16.0); Lymphocytes Absolute Auto 1300 /uL (1100-4500); Mean Corpuscular HGB Conc 34.4 % (30-36); Mean Corpuscular Hemoglobin 29.9 PG (26-34); Mean Corpuscular Volume 86.8 fL (80-100); Monocytes Absolute Auto 400 /uL (0-900); Monocytes Percent Auto 7.3 % (3-14); Neutrophils Absolute Auto 3700 /uL (1500-7000); Neutrophils Percent Auto 65.6 % (50-75); Platelet Count 262 X10^3/uL (150-400); Red Blood Cell Count 4.05 X10^6/uL (4.0-5.2); Red Cell Distribution Width 13.2 % (11.6-14.8); White Blood Cell Count 5.6 X10^3/uL (4.5-11.0)
[2024-02-07 18:04] LABS: Alanine Aminotransferase 24 IU/L (<35); Albumin Globulin Ratio 1.3 (1.0-2.8); Alkaline Phosphatase 60 U/L (38-126); Amylase 70 U/L (30-110); Aspartate Aminotransferase 27 IU/L (14-36); BUN Creatinine Ratio 16.4 (6-22); Bilirubin Total 0.4 mg/dL (0.2-1.3); Blood Urea Nitrogen 12 mg/dL (7-17); Calcium 9.2 mg/dL (8.4-10.2); Carbon Dioxide 32 mmol/L (22-32); Chloride 105 mmol/L (98-107); Estimated Glomerular Filt Rate > 60 mL/min (>60); Globulin 3.2 g/dL (1.7-4.1); Glucose 101 mg/dL (70-100); HEMOLYSIS < 15 (0-50); Lipase 91 U/L (23-300); Potassium 3.8 mmol/L (3.4-5.1); Sodium 139 mmol/L (137-145); Total Protein 7.2 g/dL (6.3-8.2)
[2024-02-07 18:32] LABS: TSH w/ Reflex to FT4 1.07 uIU/mL (0.47-4.68)
== END ==
PROVIDERS: PCP Physician Assistant Medical; Referring Provider Physician Assistant Medical; Visit Provider Physician Assistant Medical
DX: M54.9 Dorsalgia, unspecified (principal); R10.9 Unspecified abdominal pain; E03.9 Hypothyroidism, unspecified; M54.50 Low back pain, unspecified
CPT/HCPCS: 36415; 80053; 82150; 83690; 84443; 85025

== ENCOUNTER → 2024-02-21 11:15 | Outpatient (CLI) | payer OTHER, SELFPAY ==
[2024-02-25 20:13] LABS: Fecal Immunochemical Test Negative (Negative)
== END ==
PROVIDERS: PCP Physician Assistant Medical; Visit Provider Physician Assistant Medical
DX: M54.9 Dorsalgia, unspecified (principal)
CPT/HCPCS: 82274

== ENCOUNTER → 2024-12-12 11:09 | Outpatient (CLI) | payer OTHER, SELFPAY ==
[2024-12-12 18:02] LABS: Add Manual Diff / Slide Review NO; Basophils Absolute Auto 0 /uL (0-100); Basophils Percent Auto 0.8 % (0-2); Eosinophils Absolute Auto 100 /uL (0-450); Eosinophils Percent Auto 1.9 % (2-4); Hematocrit 41.8 % (36-46); Lymphocytes Absolute Auto 1400 /uL (1100-4500); Lymphocytes Percent Auto 29.5 % (25-40); Mean Corpuscular HGB Conc 33.4 % (30-36); Mean Corpuscular Hemoglobin 29.7 PG (26-34); Mean Corpuscular Volume 88.7 fL (80-100); Monocytes Absolute Auto 400 /uL (0-900); Monocytes Percent Auto 8.4 % (3-14); Neutrophils Absolute Auto 2800 /uL (1500-7000); Neutrophils Percent Auto 59.4 % (50-75); Platelet Count 287 X10^3/uL (150-400); Red Blood Cell Count 4.72 X10^6/uL (4.0-5.2); Red Cell Distribution Width 13.2 % (11.6-14.8); White Blood Cell Count 4.8 X10^3/uL (4.5-11.0)
[2024-12-12 18:15] LABS: Alanine Aminotransferase 26 IU/L (<35); Albumin 4.9 g/dL (3.5-5.0); Albumin Globulin Ratio 1.7 (1.0-2.8); Alkaline Phosphatase 57 U/L (38-126); Aspartate Aminotransferase 32 IU/L (14-36); BUN Creatinine Ratio 16.9 (6-22); Bilirubin Total 0.7 mg/dL (0.2-1.3); Blood Urea Nitrogen 14 mg/dL (7-17); Calcium 9.7 mg/dL (8.4-10.2); Carbon Dioxide 30 mmol/L (22-32); Chloride 100 mmol/L (98-107); Cholesterol 247 mg/dL (140-199); Estimated Glomerular Filt Rate > 60 mL/min (>60); Globulin 2.9 g/dL (1.7-4.1); Glucose 90 mg/dL (70-100); HDL Cholesterol 98 mg/dL (40-60); HEMOLYSIS 29 (0-50); LDL Cholesterol Calculated 129 mg/dL (<100); Potassium 4.6 mmol/L (3.4-5.1); Sodium 137 mmol/L (137-145); Total Protein 7.8 g/dL (6.3-8.2); Triglycerides 102 mg/dL (35-150)
[2024-12-12 18:38] LABS: TSH w/ Reflex to FT4 1.44 uIU/mL (0.47-4.68)
[2024-12-12 18:57] LABS: Erythrocyte Sedimentation Rate 15 MM/HR (0-20); Vitamin B12 542 pg/mL (239-931)
[2024-12-12 19:00] LABS: Hep C Virus Ab w/Reflex Quant NEGATIVE s/c (NEGATIVE)
== END ==
PROVIDERS: PCP Physician Assistant; Visit Provider Physician Assistant
DX: Z13.6 Encounter for screening for cardiovascular disorders (principal); Z79.899 Other long term (current) drug therapy; G43.909 Migraine, unspecified, not intractable, without status migrainosus; E03.9 Hypothyroidism, unspecified; E53.8 Deficiency of other specified B group vitamins; Z11.59 Encounter for screening for other viral diseases; R51.9 Headache, unspecified
CPT/HCPCS: 80053; 80061; 82607; 84443; 85025; 85651; 86803